=== PATIENT | female | born 1995 | race Caucasian/White ===

== ENCOUNTER 2019-07-14 22:28 | Emergency (ER) | payer SELFPAY ==
[~2019-07-14] VITALS: Ht 162.6 cm; Wt 63.0 kg
[2019-07-14 22:32] VITALS: BP 116/65
[2019-07-14] MEDS ORDERED: ONDANSETRON HCL 4MG/2ML INJ IV ONE (23:15)
[2019-07-14] MEDS ORDERED: FOLIC ACID 1 MG, THIAMINE HCL 100 MG, MVI, ADULT NO.1 10 ML in DEXTROSE 5% WATER 1,000 ML IV ONE ×4 (23:15)
== END 2019-07-15 02:24 | disposition home or self-care (01) ==
LOC: ER 22:28
DX: T51.0X1A Toxic effect of ethanol, accidental (unintentional), initial encounter (principal); G92 Toxic encephalopathy; Y92.488 Other paved roadways as the place of occurrence of the external cause
CPT/HCPCS: 36415; 80320; 82962; 96365; 96366; 96375; 99283; J2405; J3411; J3490; J7070; Z7610; G0480